=== PATIENT | male | born 1935 | race Caucasian/White ===

== ENCOUNTER → 2020-10-25 | Outpatient (CLI) | payer MEDICARE | END | disposition home or self-care (01) | LOC: RADPV 13:39 | PROVIDERS: ATTEND Internal Medicine Geriatric Medicine | DX: M43.16 Spondylolisthesis, lumbar region (principal); M47.816 Spondylosis without myelopathy or radiculopathy, lumbar region; M43.15 Spondylolisthesis, thoracolumbar region; M47.812 Spondylosis without myelopathy or radiculopathy, cervical region; M54.2 Cervicalgia; M54.5 Low back pain | CPT/HCPCS: 72040; 72100 ==